=== PATIENT | female | born 1990 | race Caucasian/White ===

== ENCOUNTER 2022-09-01 11:01 | Outpatient (CLI) | payer OTHER ==
[~2022-09-01] VITALS: Ht 165.1 cm; Wt 131.1 kg
[2022-09-01] MEDS ORDERED: CEPHALEXIN500 M1 PO (19:40)
== END 2022-09-01 19:50 | disposition home or self-care (01) ==
LOC: OBS/DEL 11:01
PROVIDERS: ATTEND Specialist
DX: O24.913 Unspecified diabetes mellitus in pregnancy, third trimester (principal); Z3A.35 35 weeks gestation of pregnancy